=== PATIENT | male | born 1950 | race Caucasian/White ===

== ENCOUNTER 2018-10-14 11:08 | Emergency (ER) | payer MEDICARE, OTHER ==
--- NOTE | 2018-10-14 11:48 | EDM.PDOC ---
ED HPI GENERAL MEDICAL PROBLEM - General Chief Complaint: Skin Complaint Stated Complaint: RASH ON BACK AND LEFT LEG Time Seen by Provider: 10/14/18 11:22 Source of Information: Reports: Patient, RN Notes Reviewed History Limitations: Reports: No Limitations - History of Present Illness INITIAL COMMENTS - FREE TEXT/NARRATIVE: Patient is a 68-year-old male who presents to the ED for the evaluation of a painful rash. The patient noted this rash developing roughly 2-3 days ago. It started on his left leg and then he noticed it on his left back as well. He notes he did have chickenpox as a child and thinks that this might be shingles. He tried to use some hydrocortisone cream to the area but it did not help much. He states it is painful, and rates this at a 3/10 on the pain scale. The rash is red raised and follows the L3 dermatome. Patient's primary care provider is Dr. Rios. Groin Pain Score (Numeric/FACES): 4 - Related Data Allergies Allergy/AdvReac Type Severity Reaction Status Date / Time No Known Allergies Allergy Verified 10/14/18 11:19 Home Meds: Home Meds ALPRAZolam [Alprazolam] 0.25 mg PO TID 10/14/18 [History] Aspirin [Ecotrin EC] 81 mg PO WEEKLY 10/14/18 [History] Exenatide Microspheres [Bydureon Pen] 1 injection SQ WEEKLY 10/14/18 [History] Ezetimibe/Simvastatin [Ezetimibe-Simvastatin 10-80 mg] 1 tab PO BEDTIME [History] Fenofibrate Nanocrystallized [Fenofibrate] 145 mg PO DAILY 10/14/18 [History] Fluticasone/Salmeterol [Fluticasone-Salmeterol 232-14 MCG Powder Inha] 1 inh INH DAILY 10/14/18 [History] Insulin Glarg,Human.Rec.Analog [Lantus Solostar] 14 units SQ DAILY 10/14/18 [ History] Isosorbide Mononitrate [Imdur] 60 mg PO DAILY 10/14/18 [History] Lidocaine 5% 35.44 gm .XX Q12HR PRN #1 tube 10/14/18 [Rx] Lisinopril 10 mg PO BID 10/14/18 [History] Loratadine 10 mg PO BID 10/14/18 [History] Metoprolol Tartrate 50 mg PO BID 10/14/18 [History] Niacin 1,000 mg PO DAILY 10/14/18 [History] Terazosin [Hytrin] 5 mg PO BEDTIME 10/14/18 [History] traZODone HCl [Trazodone HCl] 50 mg PO TID 10/14/18 [History] valACYclovir HCl [valACYclovir] 1,000 mg PO TID #21 tablet 10/14/18 [Rx] Past Medical History HEENT History: Reports: Impaired Vision Cardiovascular History: Reports: Angina, High Cholesterol, Hypertension, [place] Respiratory History: Reports: SOB Psychiatric History: Reports: Anxiety Endocrine/Metabolic History: Reports: Diabetes, Type II - Infectious Disease History Infectious Disease History: Reports: Chicken Pox - Past Surgical History Musculoskeletal Surgical History: Reports: Shoulder Surgery Social & Family History - Family History Family Medical History: Noncontributory - Tobacco Use Smoking Status *Q: Never Smoker Second Hand Smoke Exposure: No - Caffeine Use Caffeine Use: Reports: Coffee - Recreational Drug Use Recreational Drug Use: No ED ROS GENERAL - Review of Systems Review Of Systems: See Below Constitutional: Denies: Fever, Chills HEENT: Reports: No Symptoms Respiratory: Reports: No Symptoms Cardiovascular: Reports: No Symptoms Endocrine: Reports: No Symptoms GI/Abdominal: Reports: No Symptoms : Reports: No Symptoms Musculoskeletal: Reports: No Symptoms Skin: Reports: Rash (Red, raised painful rash that follows L3 dermatome) Neurological: Reports: No Symptoms Psychiatric: Reports: No Symptoms Hematologic/Lymphatic: Reports: No Symptoms Immunologic: Reports: No Symptoms ED EXAM, SKIN/RASH Exam: See Below Exam Limited By: No Limitations General Appearance: Alert, WD/WN, No Apparent Distress Respiratory/Chest: No Respiratory Distress, Lungs Clear, Normal Breath Sounds, No Accessory Muscle Use, Chest Non-Tender Cardiovascular: Normal Peripheral Pulses, Regular Rate, Rhythm, No Murmur Extremities: Normal Inspection (rash noted on L upper leg), Normal Range of Motion, Normal Capillary Refill Neurological: Alert, Oriented, Normal Cognition, No Motor/Sensory Deficits Psychiatric: Normal Affect, Normal Mood Skin: Warm, Dry, Intact, Normal Color, Rash (Dark red, raised vesculopapular rash noted to Upper left leg/groin and onto Left lower back. Follows L3 dermatome.) Course - Vital Signs Last Recorded V/S: Last Vital Signs Temp 97.8 F 10/14/18 11:15 Pulse 94 10/14/18 11:15 Resp 16 10/14/18 11:15 BP 157/89 H 10/14/18 11:15 Pulse Ox 97 10/14/18 11:15 - Re-Assessments/Exams Free Text/Narrative Re-Assessment/Exam: 10/14/18 11:53 Patient presents to the ED for the evaluation of a rash. This is consistent with shingles in nature, has provided the patient with a prescription for valacyclovir and lidocaine topical ointment for pain relief. Have recommended that he follow up with his primary care provider if it is not resolving after treatment course is done. Patient is understanding of this. Departure - Departure Time of Disposition: 11:44 Disposition: Home, Self-Care 01 Condition: Fair Clinical Impression: Shingles Qualifiers: Herpes zoster complications: without complications Qualified Code(s): B02.9 - Zoster without complications - Discharge Information Prescriptions: Lidocaine 5% 35.44 gm .XX Q12HR PRN #1 tube PRN Reason: shingles pain valACYclovir HCl [valACYclovir] 1,000 mg PO TID #21 tablet Instructions: Shingles, [id number] Referrals: Chris Rios MD [Primary Care Provider] - Forms: ED Department Discharge Additional Instructions: You have been evaluated in the ED today for your rash. This is most consistent with shingles. You have been prescribed valacyclovir, and antiviral please take as directed. You have been provided with lidocaine ointment, please use sparingly to affected areas 2-3 times daily PRN. Recommend that you follow up with your primary care provider after the course of treatment to make sure you do not need more medicine. These medications have been electronically sent to [facility] located near [facility], they are open from noon to 4pm today only. Please return to the ER if your symptoms change or worsen.
== END 2018-10-14 11:55 | disposition home or self-care (01) ==
LOC: JD.ED 11:08
DX: B02.9 Zoster without complications (principal); E78.00 Pure hypercholesterolemia, unspecified; I10 Essential (primary) hypertension; I25.2 Old myocardial infarction; E11.9 Type 2 diabetes mellitus without complications; F41.9 Anxiety disorder, unspecified; Z79.82 Long term (current) use of aspirin; Z79.899 Other long term (current) drug therapy; Z79.4 Long term (current) use of insulin
CPT/HCPCS: 99282; 99283